=== PATIENT | male | born 1955 | race Caucasian/White ===

== ENCOUNTER → 2022-03-20 | Outpatient (CLI) | payer OTHER | END | disposition home or self-care (01) | LOC: LAB 11:05 → PLD 11:05 → LAB SHORT 11:05 | DX: C44.219 Basal cell carcinoma of skin of left ear and external auricular canal (principal) | CPT/HCPCS: 88305 ==

== ENCOUNTER 2022-09-20 14:45 | Emergency (ER) | payer OTHER ==
[~2022-09-20] VITALS: Ht 172.7 cm; Wt 81.7 kg
[2022-09-20] MEDS ORDERED: OMEP20ER PO (15:51)
== END 2022-09-20 16:49 | disposition home or self-care (01) ==
LOC: ER 14:45
DX: S62.312A Displaced fracture of base of third metacarpal bone, right hand, initial encounter for closed fracture (principal); S62.314A Displaced fracture of base of fourth metacarpal bone, right hand, initial encounter for closed fracture; W19.XXXA Unspecified fall, initial encounter
CPT/HCPCS: 29125; 73110; 73200; 76377; 99284-25

== ENCOUNTER 2022-09-22 08:48 | Emergency (ER) | payer OTHER ==
[~2022-09-22] VITALS: Ht 175.3 cm; Wt 77.1 kg
[~2022-09-22 08:48] MED LIST: OMEP20ER PO
[2022-09-22] MEDS ORDERED: Roxicodone5 MG PO (11:04)
== END 2022-09-22 11:50 | disposition home or self-care (01) ==
LOC: ER 08:48
DX: S62.302A Unspecified fracture of third metacarpal bone, right hand, initial encounter for closed fracture (principal); S62.304A Unspecified fracture of fourth metacarpal bone, right hand, initial encounter for closed fracture; S62.306A Unspecified fracture of fifth metacarpal bone, right hand, initial encounter for closed fracture; S62.141A Displaced fracture of body of hamate [unciform] bone, right wrist, initial encounter for closed fracture; X58.XXXA Exposure to other specified factors, initial encounter; K21.9 Gastro-esophageal reflux disease without esophagitis; E78.5 Hyperlipidemia, unspecified; Z79.899 Other long term (current) drug therapy
CPT/HCPCS: 73130; A9270

== ENCOUNTER → 2023-06-21 | Outpatient (CLI) | payer OTHER ==
[~2023-06-21] MED LIST changes: +Roxicodone5 MG PO
[2023-06-21 14:49] LABS: BASOPHILS ABSOLUTE AUTO 0.01 K/mm3 (0.00-0.23); BASOPHILS PERCENT AUTO 0 % (0-2); EOSINOPHILS ABSOLUTE AUTO 0.01 K/mm3 (0.00-0.68); EOSINOPHILS PERCENT AUTO 0 % (0-6); Hematocrit 39.4 % (37.0-53.0); Hemoglobin 13.1 g/dL (13.5-17.5); IMMATURE GRAN ABSOLUTE AUTO 0.05 K/mm3 (0.00-0.10); IMMATURE GRAN PERCENT AUTO 1 % (0-1); LYMPHOCYTES ABSOLUTE AUTO 1.87 K/mm3 (0.84-5.20); LYMPHOCYTES PERCENT AUTO 24 % (21-46); MONOCYTES ABSOLUTE AUTO 1.12 K/mm3 (0.16-1.47); MONOCYTES PERCENT AUTO 15 % (4-13); Mean Corpuscular HGB 28.7 pg (26.0-34.0); Mean Corpuscular HGB Conc 33.2 g/dL (31.5-36.5); Mean Corpuscular Volume 86 fL (80-100); Mean Platelet Volume 10.3 fL (9.1-12.4); NEUTROPHILS ABSOLUTE AUTO 4.65 K/mm3 (1.96-9.15); NEUTROPHILS PERCENT AUTO 60 % (41-73); Platelet Count 188 K/mm3 (150-400); RDW Coefficient Variation 13.8 % (11.7-14.2); RDW Standard Deviation 43.7 fL (35.1-46.3); Red Blood Cell Count 4.56 M/mm3 (4.30-5.90); White Blood Cell Count 7.71 K/mm3 (4.00-11.30)
[2023-06-21 15:02] LABS: Albumin, Blood 3.4 g/dL (3.4-5.0); Albumin/Globulin Ratio 0.8 (0.8-1.8); Bilirubin, Total 0.4 mg/dL (0.1-1.0); Bun/Creatinine Ratio 12.7 (12.0-20.0); Calcium, Blood 8.7 mg/dL (8.5-10.1); Creatinine, Blood 1.18 mg/dL (0.60-1.20); Globulin, Blood 4.5 g/dL (2.2-4.0); Potassium, Blood 4.1 mmol/L (3.5-5.5); Total Protein, Blood 7.9 g/dL (6.4-8.2)
== END | disposition home or self-care (01) ==
LOC: LAB SHORT 14:42 → LAB 14:42
PROVIDERS: Emergency Medicine
DX: R10.31 Right lower quadrant pain (principal)
CPT/HCPCS: 80053; 83690; 85025

== ENCOUNTER 2024-04-11 19:16 | Emergency (ER) | payer OTHER ==
[~2024-04-11] VITALS: Ht 172.7 cm; Wt 90.7 kg
[2024-04-12] MEDS ORDERED: Diphth,Pertuss(Acell),Tet Vac 0.5 ML VIAL IM ONE (00:25)
[2024-04-12 00:30] VITALS: BP 118/76
== END 2024-04-12 00:47 | disposition home or self-care (01) ==
LOC: ER 19:16
DX: S50.311A Abrasion of right elbow, initial encounter (principal); R07.81 Pleurodynia; M25.511 Pain in right shoulder; M25.532 Pain in left wrist; W18.30XA Fall on same level, unspecified, initial encounter; Z79.899 Other long term (current) drug therapy; E78.5 Hyperlipidemia, unspecified; K21.9 Gastro-esophageal reflux disease without esophagitis
CPT/HCPCS: 71101; 73030; 73070; 73100; 90471; 90715; 93005; 93010; 99284-25

== ENCOUNTER 2024-09-25 13:38 | Emergency (ER) | payer OTHER ==
[~2024-09-25] VITALS: Ht 172.7 cm; Wt 95.2 kg
[2024-09-25 14:05] LABS: BASOPHILS ABSOLUTE AUTO 0.01 K/mm3 (0.00-0.23); BASOPHILS PERCENT AUTO 0 % (0-2); EOSINOPHILS ABSOLUTE AUTO 0.03 K/mm3 (0.00-0.68); EOSINOPHILS PERCENT AUTO 1 % (0-6); Hematocrit 37.1 % (37.0-53.0); Hemoglobin 12.4 g/dL (13.5-17.5); IMMATURE GRAN ABSOLUTE AUTO 0.02 K/mm3 (0.00-0.10); IMMATURE GRAN PERCENT AUTO 0 % (0-1); LYMPHOCYTES ABSOLUTE AUTO 2.12 K/mm3 (0.84-5.20); LYMPHOCYTES PERCENT AUTO 33 % (21-46); MONOCYTES PERCENT AUTO 11 % (4-13); Mean Corpuscular HGB 28.9 pg (26.0-34.0); Mean Corpuscular HGB Conc 33.4 g/dL (31.5-36.5); Mean Corpuscular Volume 87 fL (80-100); NEUTROPHILS ABSOLUTE AUTO 3.47 K/mm3 (1.96-9.15); NEUTROPHILS PERCENT AUTO 55 % (41-73); Platelet Count 159 K/mm3 (150-400); RDW Coefficient Variation 13.2 % (11.7-14.2); RDW Standard Deviation 41.6 fL (35.1-46.3); Red Blood Cell Count 4.29 M/mm3 (4.30-5.90); White Blood Cell Count 6.35 K/mm3 (4.00-11.30)
[2024-09-25 14:44] LABS: Bun/Creatinine Ratio 12.1 (12.0-20.0); Calcium, Blood 8.3 mg/dL (8.5-10.1); Creatinine, Blood 1.07 mg/dL (0.60-1.20); Potassium, Blood 3.9 mmol/L (3.5-5.5)
[2024-09-25 14:46] LABS: Valproic Acid 111.2 ug/mL (50.0-100.0)
[2024-09-25 15:40] LABS: Source, Urine Clean Catch
[2024-09-25 15:57] LABS: Appearance, Urine Clear (Clear); Bilirubin, Urine Neg (Neg); Blood, Urine 2+ (Neg); Color, Urine Yellow (P-Yellow); Glucose Qualitative, Urine Neg (Neg); Ketones, Urine 1+ (Neg); Leukocyte Esterase, Urine Neg (Neg); Nitrite, Urine Neg (Neg); Protein, Urine 1+ (Neg); Specific Gravity, Urine 1.015 (1.003-1.022); Urobilinogen, Urine NORM (Normal); pH, Urine 6.5 (5.0-8.0)
[2024-09-25 16:03] VITALS: BP 122/80
[2024-09-25 16:04] LABS: Bacteria Few /hpf; Squamous Epithelial Cells Rare /hpf (Few); White Blood Cells, Urine 0-2 /hpf (0-5)
== END 2024-09-25 16:45 | disposition home or self-care (01) ==
LOC: ER 13:38
PROVIDERS: Emergency Medicine
DX: R56.9 Unspecified convulsions (principal); Z04.3 Encounter for examination and observation following other accident
CPT/HCPCS: 51701; 70450; 80048; 80164; 81001; 83735; 85025; 93005; 93010; 99284-25

== ENCOUNTER 2024-12-08 16:53 | Emergency (ER) | payer OTHER ==
[~2024-12-08] VITALS: Ht 175.3 cm; Wt 79.8 kg
--- NOTE | 2024-12-08 17:43 | NUR ---
"Trauma Team Activation | Spiritual Care Pt. arrived by ambulance. Pts. SO Cheryl arrived with the ambulance. Pt. displays evidence of confusion and facial trauma. This manager clinical pharmacy sits with SO at bedside. SO displays evidence of WICHITA. SO phoned her daughter who lives locally and arrived in 15-20 minutes. The family verifies the Pt. has a diagnosis of Parkinsons. Daughter (Bridget) arrives and is able to assist with communication and history. This manager clinical pharmacy excused himself after the Pt. returned from CT scans. WIll remain available to Pt. and family."
[2024-12-08] MEDS ORDERED: Acetaminophen 500 MG Tab PO ONE (18:10)
[2024-12-08 18:40] VITALS: BP 125/75
== END 2024-12-08 19:30 | disposition home or self-care (01) ==
LOC: ER 16:53
DX: S02.2XXB Fracture of nasal bones, initial encounter for open fracture (principal); W01.0XXA Fall on same level from slipping, tripping and stumbling without subsequent striking against object, initial encounter; Z79.899 Other long term (current) drug therapy; G20.A1 Parkinson's disease without dyskinesia, without mention of fluctuations; G40.909 Epilepsy, unspecified, not intractable, without status epilepticus
CPT/HCPCS: 70450; 70486; 72125; 93005; 93010; 99284-25; A9270

== ENCOUNTER 2025-05-13 08:38 | Observation (INO) | payer OTHER ==
[~2025-05-13] VITALS: Ht 175.3 cm; Wt 61.0 kg
[2025-05-13 09:01] LABS: BASOPHILS ABSOLUTE AUTO 0.00 K/mm3 (0.00-0.23); BASOPHILS PERCENT AUTO 0 % (0-2); EOSINOPHILS ABSOLUTE AUTO 0.00 K/mm3 (0.00-0.68); EOSINOPHILS PERCENT AUTO 0 % (0-6); Hematocrit 34.6 % (37.0-53.0); Hemoglobin 11.6 g/dL (13.5-17.5); IMMATURE GRAN ABSOLUTE AUTO 0.01 K/mm3 (0.00-0.10); IMMATURE GRAN PERCENT AUTO 0 % (0-1); LYMPHOCYTES ABSOLUTE AUTO 1.97 K/mm3 (0.84-5.20); LYMPHOCYTES PERCENT AUTO 28 % (21-46); MONOCYTES ABSOLUTE AUTO 0.99 K/mm3 (0.16-1.47); MONOCYTES PERCENT AUTO 14 % (4-13); Mean Corpuscular HGB Conc 33.5 g/dL (31.5-36.5); Mean Corpuscular Volume 87 fL (80-100); NEUTROPHILS ABSOLUTE AUTO 4.07 K/mm3 (1.96-9.15); NEUTROPHILS PERCENT AUTO 58 % (41-73); NRBC ABSOLUTE 0.00 K/mm3 (0.00-0.02); NRBC Auto 0.0 /100 WBC (0.0-0.2); Platelet Count 111 K/mm3 (150-400); RDW Coefficient Variation 15.4 % (11.7-14.2); RDW Standard Deviation 49.1 fL (35.1-46.3)
[2025-05-13 09:24] LABS: Alanine Aminotransfer (ALT/SGP 17.0 U/L (12-78); Albumin, Blood 3.0 g/dL (3.4-5.0); Albumin/Globulin Ratio 0.8 (0.8-1.8); Anion Gap 7.0 mmol/L (3-11); Aspartate Aminotrans (AST/SGOT 30.0 U/L (12-37); Bilirubin, Total 0.5 mg/dL (0.1-1.0); Blood Urea Nitrogen 13.0 mg/dL (8-24); CO2, Blood 28.0 mmol/L (21-32); Calcium, Blood 8.5 mg/dL (8.5-10.1); Chloride, Blood 106.0 mmol/L (98-108); Creatinine, Blood 0.84 mg/dL (0.60-1.20); Globulin, Blood 3.9 g/dL (2.2-4.0); Glucose, Blood 100.0 mg/dL (70-99); Potassium, Blood 3.7 mmol/L (3.5-5.5); Sodium, Blood 137.0 mmol/L (136-145); Total Protein, Blood 6.9 g/dL (6.4-8.2)
[2025-05-13 10:12] LABS: Source, Urine Clean Catch
[2025-05-13 10:22] LABS: Bilirubin, Urine Neg (Neg); Color, Urine Yellow (P-Yellow); Glucose Qualitative, Urine Neg (Neg); Ketones, Urine 2+ (Neg); Leukocyte Esterase, Urine 2+ (Neg); Protein, Urine 1+ (Neg); Specific Gravity, Urine 1.015 (1.003-1.022); Urobilinogen, Urine NORM (Normal)
[2025-05-13 10:45] LABS: White Blood Cells, Urine 50-100 /hpf (0-5)
[2025-05-13] MEDS ORDERED: CefTRIAXone Sodium 1,000 MG in NS 100 ML IV ONE (10:55)
[2025-05-13] MEDS ORDERED: NS 1,000 ML IV SCH ×2 (11:35→14:00)
[2025-05-13] MEDS ORDERED: FLU VACC TS2025(65UP)/MF59C/PF 45 MCG/0.5 ML SYRINGE IM SCH (13:10)
[2025-05-13 15:24] VITALS: BP 155/68
[2025-05-13] MEDS ORDERED: DIVA500EC PO ×2 (16:00)
[2025-05-13] MEDS ORDERED: MYRBETRIQ50 MG PO (16:01)
[2025-05-13] MEDS ORDERED: Seroquel Xr50 MG PO (16:02)
[2025-05-13] MEDS ORDERED: Primidone50 MG PO (16:02)
[2025-05-13] MEDS ORDERED: ZYRTEC10 M2 PO (16:03)
[2025-05-13] MEDS ORDERED: Oxybutynin Chlo15 MG PO (16:04)
[2025-05-13] MEDS ORDERED: OLAN5 PO (16:05)
[2025-05-13] MEDS ORDERED: Desyrel150 MG PO (16:05)
[2025-05-13] MEDS ORDERED: CELEXA40 M1 PO (16:06)
[2025-05-13] MEDS ORDERED: ZOCOR20 MG PO (16:07)
--- NOTE | 2025-05-13 19:06 | NUR ---
SHIFT SUMMARY PT DEAF/NON VERBAL. PT ADMITTED DUE TO COMPLICATED UTI. PT CALLS OUT AND MOANS. PT OFTEN TRYS TO TAKE OFF GOWN. PT HAS NS RUNNING AT 75ML/HR 2RN SKIN CHECK COMPLETED WITH JUDITH OLIVARES RN. PT HAS BRUISING ON L SIDE BACK/HIP. AND CONTUSION ON L EYE FROM GLF AT HOME. PHOTO IN CHART. MEPILEX ON COCCYX FOR PRETECTIVE MEASURES. FAMILY REPORTED "TRYING TO GET BED FOR PT AT HOME. DONT GET PT OUT OF BED, HE WILL FALL, USES WALKER, GOT HIM WHEELCHAIR FROM [employer]." PT ADMITTED TO FLOOR AT 1520, MED REC RECONSILED BY MARSHALL GARCIA. PT ON BEDREST. PT NPO. DR. DOWNEY REPORTED "ORDERED BEDSIDE SWALLOW INCASE YOU THINK HE IS REDIRECTABLE." PALLIATIVE CARE ORDERED. PT EDUCATED BORING MILL SET UP OPERATOR LIGHT/FALL PRECAUTIONS/UNIT, PT IN BED, BED IN LOWEST POSITION, CALL LIGHT IN REACH. BED ALARM ON. DNR BRACELET ON PT. PT HAS TREMORS. HX OF PARKINSONS,
[2025-05-13 19:12] VITALS: BP 121/68
[2025-05-13] MEDS ORDERED: Haloperidol Lactate Inj. 5 MG/ML Injection IV PRN (21:35)
[2025-05-14] MEDS ORDERED: FentaNYL Citrate 50 MCG/ML 2 ML Injection IV PRN (00:45)
--- NOTE | 2025-05-14 03:49 | NUR ---
SHIFT SUMMARY ADMITTED FOR COMPLICATED UTI. DNR CODE. IV ANTIB RX ARE SCHEDULED. IV FLUID INFUSING. ON BEDREST. A&O X1-2? DIFFICULT TO ASSESS HE IS NON-VERBAL AND DEAF. HE DOES SMILE AT YOU IF HE'S HAPPY (BUT ONLY IF YOU APPROACH HIM ON THE LEFT SIDE OF HIS BODY. HE DID NOT ACKNOWLEDGE ME WHEN I APPROACHED HIM ON THE RIGHT SIDE). TELEMETRY: NSR @ 60 BPM. INCONTINENT, ATTENDS IN PLACE. I DID CALL FOR SOMETHING FOR ANXIETY THIS SHIFT. AND WE ALSO REQUESTED SOMETHING FOR PAIN. ANXIETY AND PAIN MEDICATION GIVEN. ON RA. HE DID EXIT THE BED IMPULSIVELY/UNSAFELY, HORRIBLY UNSTEADY ON HIS FEET. NOT REDIRECTABLE. HE REMOVED GOWN AND ATTENDS, AND TELE CORDS MANY TIMES. HOSPITALIST INFORMED, NEW ORDERS IN EMAR. RECENT HX OF MANY GLF'S AND HEAD TRAUMA. NPO. HX: PARKINSONS.
[2025-05-14 05:41] LABS: BASOPHILS ABSOLUTE AUTO 0.01 K/mm3 (0.00-0.23); BASOPHILS PERCENT AUTO 0 % (0-2); EOSINOPHILS ABSOLUTE AUTO 0.01 K/mm3 (0.00-0.68); EOSINOPHILS PERCENT AUTO 0 % (0-6); Hematocrit 32.8 % (37.0-53.0); Hemoglobin 10.6 g/dL (13.5-17.5); IMMATURE GRAN ABSOLUTE AUTO 0.02 K/mm3 (0.00-0.10); IMMATURE GRAN PERCENT AUTO 0 % (0-1); LYMPHOCYTES ABSOLUTE AUTO 2.24 K/mm3 (0.84-5.20); LYMPHOCYTES PERCENT AUTO 40 % (21-46); MONOCYTES ABSOLUTE AUTO 0.89 K/mm3 (0.16-1.47); MONOCYTES PERCENT AUTO 16 % (4-13); Mean Corpuscular HGB Conc 32.3 g/dL (31.5-36.5); Mean Corpuscular Volume 90 fL (80-100); NEUTROPHILS ABSOLUTE AUTO 2.44 K/mm3 (1.96-9.15); NEUTROPHILS PERCENT AUTO 43 % (41-73); NRBC ABSOLUTE 0.00 K/mm3 (0.00-0.02); NRBC Auto 0.0 /100 WBC (0.0-0.2); Platelet Count 98 K/mm3 (150-400); RDW Coefficient Variation 15.6 % (11.7-14.2); RDW Standard Deviation 51.9 fL (35.1-46.3)
[2025-05-14 06:01] LABS: Anion Gap 8.0 mmol/L (3-11); Blood Urea Nitrogen 12.0 mg/dL (8-24); CO2, Blood 27.0 mmol/L (21-32); Calcium, Blood 8.0 mg/dL (8.5-10.1); Chloride, Blood 107.0 mmol/L (98-108); Creatinine, Blood 0.76 mg/dL (0.60-1.20); Glucose, Blood 79.0 mg/dL (70-99); Potassium, Blood 3.6 mmol/L (3.5-5.5); Sodium, Blood 138.0 mmol/L (136-145)
[2025-05-14] MEDS ORDERED: NS 1,000 ML IV SCH (07:05)
[2025-05-14 07:51] VITALS: BP 118/105
[2025-05-14] MEDS ORDERED: Enoxaparin 40 MG/0.4 ML SYR SC SCH (09:00)
--- NOTE | 2025-05-14 11:34 | NUR ---
NOTE SPEECH THERAPY CAME TO DO COMPLETE EVAL. DIET ORDERED. LET DR. ONEILL KNOW MEDS NOT UPDATED IN EMAR AND THAT FAMILY IN ROOM. THIS RN LET PALLIATIVE CARE KNOW FAMILY IN ROOM.
[2025-05-14] MEDS ORDERED: CefTRIAXone Sodium 1,000 MG in NS 100 ML IV SCH (12:00)
[2025-05-14] MEDS ORDERED: Valproic Acid Syrup 250MG / 5ML 1 ML PO SCH (14:00)
[2025-05-14] MEDS ORDERED: Morphine Sulfate 20 MG/1ML 1 ML Oral Syringe SL PRN (14:05)
--- NOTE | 2025-05-14 17:52 | NUR ---
SHIFT SUMMARY PT DEAF. PT ADMITTED DUE TO COMPLICATED UTI. PT CALLS OUT AND MOANS. MEPILEX APPLIED TO [facility] PROMINENCE. PT HAS BEDREST ORDERS. PALLIATIVE CARE CAME TO SEE PT. CINEMA OPERATOR INVOLVED. COMFORT CARE ORDERS IN PLACE. COMFORT CARE ASSESSMENT COMPLETE. RESTRAINT D/C AT 1350. ORDERED HOSPICE REFERRAL. TELE D/C. PT HAS NO IV AND A ACTIVE NO IV ORDER. IV FLUIDS DISCONTINUED. PT SPEECH THERAPY WORKED WITH PT. PT TAKES MEDS CRUSHED IN APPLESAUCE. PT ON PUREED DIET AND IS A FEEDER. PT Q2 TURNED. PT IN BED, BED LOCKED, IN LOWEST POSITION, CALL LIGHT IN REACH.
--- NOTE | 2025-05-14 18:04 | NUR ---
Spiritual Care Consult Attempted. - ordered by David Garcia Meet with attending nurse prior to visit. Attending nurse affirms the Pt. has gone on comfort care that a meaningful visit should include family who are not currently at bedside. Pt. becomes unsettled. Agree to return at a more appopropriate time.
--- NOTE | 2025-05-15 04:57 | NUR ---
WHILE BEING ROLL CHANGED PT STARTED THROWING UP. HE WAS ROLLED TO HIS SIDE TO AVOID ASPIRATION. HOSPITALIST CALLED FOR ANTI NAUSEA MEDICATION. RECEIVED ORDERS FOR ODT EVAN.
[2025-05-15] MEDS ORDERED: Ondansetron 4 MG SoluTab SL PRN (05:00)
--- NOTE | 2025-05-15 05:23 | NUR ---
PT HAD ANOTHER EPISODE OF EMESIS. PT WAS SAT UP IN BED AND AN EMESIS BAG HELD FOR HIM. THE PT VOMITED APPROX. 75 MLS OF YELLOW, THICK EMESIS. PT MEDICATED PER EMAR AND HOB REMAINED ELEVATED FOR SAFETY. WILL CONTINUE TO MONITOR.
--- NOTE | 2025-05-15 06:45 | NUR ---
SHIFT SUMMARY PT A&OX1 TO SELF. COMFORT CARE. NON-VERBAL BUT IS ABLE TO GET 1 WORD OUT OCCASIONALLY. INCONTINENT OF B & B. DOES NOT USE CALL LIGHT. DOES UNDERSTAND HOW TO HELP ROLL WITH BED CHANGES AND IS VERY HELPFUL. PT DID HAVE X2 EPISODES OF VOMITING THICK YELLOW EMESIS. CALLED HOSPITALIST AND RECEIVED ORDERS FOR ZOFRAN ODT. PT WAS ALSO SHOWING S/S OF PAIN AFTER EMESIS EPISODES SO ROXANOL GIVEN AT LOWEST DOSE PER ORDERS. PT TOLERATED BOTH OF THESE THINGS WELL. CURRENTLY THE PT IS SLEEPING IN BED WITH HOB ELEVATED, BED IN LOWEST POSITION AND CALL LIGHT WITHIN REACH.
[2025-05-16] MEDS ORDERED: Atropine Sulfate 1% Opth Soln 2ML BTL SL PRN (01:20)
--- NOTE | 2025-05-16 06:04 | NUR ---
SHIFT SUMMARY COMFORT MEASURES CONTINUED. AT THE BEGINING OF THE SHIFT, PATIENT STARTED COUGHING FOLLOWING MED PASS AND APPEARED VERY UNCOMFORTABLE. MEDICATIONS GIVEN PRN. CALLED PROVIDER AND REPORTED INCREASE IN SECRETIONS, SCOPOLAMINE PATCH ORDERED AND PLACED ON PT. PATIENT HAS BEEN MINIMALLY RESPONSIVE THROUGHOUT THE SHIFT, GRIMACING AND MOANING- MEDICATING FOR PAIN AND REPOSITIONING FREQUENTLY. NO ORAL INTAKE POST MED PASS. ONE INCONINENT VOID, ATTENDS CHANGED PRN. NO N/V THIS SHIFT. COMFORT MEDS BEING GIVEN PRN. BED ALARM ON FOR SAFETY. CALL LIGHT IN REACH. WILL REPORT TO ONCOMING RN.
--- NOTE | 2025-05-16 07:25 | NUR ---
CONTACTED ASKING FOR A ONE TIME DOSE OF ANTI-ANXIETY RX IN AN ATTEMPT TO IMPROVE HIS ANXIETY AND RESTLESSNESS. PROVIDER REPORTS HE WILL BE PLACING ORDERS AND ASSESSING PT THIS MORNING. UPDATE PROVIDED TO BEDSIDE RN. THIS PC RN TO CONTACT PT'S NIECE TO PROVIDE AN UPDATE ON PT'S STATUS.
--- NOTE | 2025-05-16 12:13 | NUR ---
PHONE CALL TO PT'S NIECE, PRITI ([phone]). THIS PC RN UPDATED PRITI ON CHANGE IN PT'S MENTATION FROM BEING ALERT AND EATING TO THIS MORNING BEING ANXIOUS, MOANING TO MINIMALLY RESPONSIVE. BEDSIDE RN REPORTS, PT IS NOW RESTING COMFORTABLY WITHOUT S/SX OF DISTRESS. PRITI REPORTS SHE WILL CONTACT PT'S SISTER MIKI TO PROVIDE UPDATE. MIKI IS DEAF AND ONLY COMMUNICATES WITH ASSISTIVE DEVISES MAKING TELEPHONE CALLS VERY DIFFICULT. [facility] IS UNSURE OF HOME OF CHOICE WHEN PT. FAMILY TO UPDATE BEDSIDE RN WITH HOME WHEN THEY COME IN TO VISIT. 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 PRITI IS UNSURE IF THEIR CLERGY WILL BE SEEING PT OR NOT. AT THIS TIME SHE REPORTS ICT SECURITY SPECIALIST VISIT IS NOT NEEDED AT THIS TIME. PC TO REMAIN AVAILABLE NEEDED.
--- NOTE | 2025-05-16 17:49 | NUR ---
NOTE PT RESTING QUIETLY AT THIS TIME. RESP EVEN AND UNLABORED. NO MOANING OR FRETFULNESS NOTED. ROXANOL, zyprexa im given. ORAL CARE DONE. FACE RELAXED. BREATHING EASY, SHALLOW. SKIN WARM BUT NOT HOT. tylenol supp x2 given FOR HOT, FLUSHED SKIN.. NO SEIZURE ACTIVITY NOTED. LORAZEPAM 1 MG SL GIVEN. PT UNABLE TO AROUSE TO SAFELY TAKE DEPAKOTE ELIXIR. HE HASN'T OPENED HIS EYES OR MOVED HIMSELF TODAY. TURNED AND SUPPORTED WITH PILLOWS FOR SKIN PROTECTION AND COMFORT. SCANT URINE OUTPT TODAY. NO BM. PT FAMILY HAS NOT VISITED OR CALLED. CARE ONGOING.
--- NOTE | 2025-05-17 04:47 | NUR ---
SHIFT SUMMARY: PT AOX0 UNRESPONSIVE, RESPONDS TO SOME PAIN AND STIMULI BUT NO WORDS AND DOESNT FOLLOW COMMANDS. HAS BEEN SLEEPING AND SNORING ALL NIGHT. UNABLE TO GIVE PO MEDS. SOME CHANGES IN BREATHING PATTERN AND LABORED BREATHING, MEDICATED PER EMR. PT IN BED, BED IN LOWEST POSITION, CALL LIGHT IN REACH. CONTINUING CARE.
--- NOTE | 2025-05-17 14:51 | NUR ---
DURING THE 1430 REPOSITING AND ASSESSMENT OF PATIENT, HE HAD ONE SINGLE BREATH IN 2 MINUTES. PATIENT IS HAVING SIGNIFICANT PERIODS OF APNEA. SISTER IS AT THE BEDSIDE. SISTER EDUCATED ON THE END OF LIFE.
--- NOTE | 2025-05-17 16:21 | NUR ---
COMFORT CARE VISIT THIS MORNING. PT IS OBTUNDED. UNABLE TO SUPPORT HIS HEAD. LEANING TO THE RIGHT REQUIRING A SUPPORTIVE NECK PILLOW. OPEN MOUTH BREATHING USING ACCESSORY MUSCLES. 5-10 SECONDS OF APNEA. PALLOR NOTED. BILAT FEET COOL TO THE TOUCH. EDUCATED PT'S SISTER MIKI ON S/SX OF ACTIVE TRANSITIONING TO END OF LIFE. THERAPUTIC LISTENING PROVIDED. SISTER ASKED THIS PC RN TO CALL THE COMMANDER OF [facility]. CALL PLACED. HER CLERGY WILL BE IN TO SEE PT THIS AFTERNOON. UPDATED CM THIS MORNING ON PT'S STATUS OF ACTIVELY TRANSITIONING AND THIS PC RN ADVISES AGAINST TRASPORTING PT HOME IT WOULD INTERUPT THE DYING PROCESS.
--- NOTE | 2025-05-17 17:58 | NUR ---
SHIFT SUMMARY A&OXNONE, NOT AROUSABLE. ON ROOM AIR. LONG PERIODS OF APNEA. LITTLE TO NO URINE PRODUCTION. Q2 TURNS TODAY. MEDICATED PER EMAR. SISTER AND FAMILY IN ROOM, END OF LIFE DISCUSSED. PALIATIVE CARE CONSULTED TODAY.
--- NOTE | 2025-05-17 18:49 | NUR ---
1840- THIS RN AND RADHA SALEEM WERE IN PT'S ROOM PROVIDING PT CARE WHEN PT TOOK HIS LAST BREATH. TWO RN VERIFICATION PERFORMED. CHARGE ISMAEL NOTIFIED. KAT SANTANA NOTIFIED. THIS RN CALLED PT'S SISTER PERCY AND INFORMED HER.
== END 2025-05-17 18:40 ==
LOC: ER 08:38 → MEDS 08:39
PROVIDERS: Physician Assistant; ADMIT Student in an Organized Health Care Education/Training Program
DX: N39.0 Urinary tract infection, site not specified (principal); G40.909 Epilepsy, unspecified, not intractable, without status epilepticus; G20.A1 Parkinson's disease without dyskinesia, without mention of fluctuations; E46 Unspecified protein-calorie malnutrition; S00.83XA Contusion of other part of head, initial encounter; W18.30XA Fall on same level, unspecified, initial encounter; S00.81XA Abrasion of other part of head, initial encounter
CPT/HCPCS: 36415; 70450; 80048; 80053; 81001; 83690; 85025; 87077; 87086; 87186; 92610; 96365; 96372; 96375; 96376; 99285-25; A6590; A9270; G0378; J0696; J1630; J1650; J3010; J7030